=== PATIENT | female | born 1955 | race Caucasian/White ===

== ENCOUNTER 2023-05-09 14:26 | Emergency (ER) | payer MEDICARE, SELFPAY ==
[2023-05-09 15:00] VITALS: BP 156/101; PULSE 81; RESP 16; TEMP 36.6; O2SAT 99
--- NOTE | 2023-05-09 15:21 | ED.FEMALEGU ---
HPI - Female Genitourinary General Chief complaint: Urogenital-Female Stated complaint: urinary issue Time Seen by Provider: 05/09/23 15:21 Source: patient Mode of arrival: ambulatory Limitations: no limitations History of Present Illness HPI Narrative: 67-year-old female presents with complaint of urinary frequency, urgency, dysuria for 1 week. Denies nausea vomiting diarrhea. Afebrile. Reports low back pain for 2 weeks but thinks may be related to recent fall that she was seen in the ER for. Ambulatory with steady gait. States she has not been drinking as much water as usual and thinks that is why she got a urinary tract infection. All systems reviewed and negative except as noted above. Related Data Home Medications Medication Instructions Recorded Confirmed albuterol sulfate 90 mcg/actuation inhalation 05/09/23 aerosol inhaler alprazolam 0.25 mg tablet mg 05/09/23 amlodipine 5 mg tablet mg 05/09/23 atorvastatin 20 mg tablet mg 05/09/23 benzonatate 200 mg capsule mg PO 05/09/23 blood sugar diagnostic (Accu-Chek 05/09/23 05/09/23 Guide test strips) blood-glucose meter (Accu-Chek 05/09/23 05/09/23 Guide Glucose Meter) lancets (Accu-Chek Softclix 05/09/23 05/09/23 Lancets) lisinopril 20 mg tablet mg 05/09/23 metformin 500 mg tablet,extended mg PO 05/09/23 release 24 hr naproxen 250 mg tablet mg 05/09/23 sertraline 50 mg tablet mg 05/09/23 Allergies Allergy/AdvReac Type Severity Reaction Status Date / Time codeine Allergy Rash Verified 05/09/23 15:05 Review of Systems Review of Systems: CONSTITUTIONAL: Denies fever, chills, or sweats. EYES: Denies visual changes, redness, or discharge. ENT: Denies rhinorrhea, congestion, sore throat, or otalgia. CARDIOVASCULAR: Denies chest pain, palpitations, or edema. RESPIRATORY: Denies cough or dyspnea. GASTROINTESTINAL: Denies abdominal pain, nausea, vomiting, or diarrhea. GENITOURINARY: Reports dysuria , frequency, urgency. Denies hematuria. SKIN: Denies rash or itching. MUSCULOSKELETAL: Denies back pain, joint pain, or myalgia. NEUROLOGIC: Denies headache, numbness, or weakness. PSYCHIATRIC: Denies anxiety or depression. All other systems reviewed are negative, except as documented in HPI. PMFSH Comments At time of signature, agree with nursing past medical, surgical, social and family history. There is no relevant family history pertinent to the presenting complaint. Exam Narrative: GENERAL: This is a well-nourished, well-developed patient, in no apparent distress. HEAD: normocephalic, atraumatic. EYES: PERRL. Sclera clear/white. Vision is grossly intact. EARS: External ears normal NOSE: External nose normal NECK: Neck supple, non-tender without lymphadenopathy, masses or thyromegaly. CARDIOVASCULAR: Regular rate and rhythm without murmurs, gallops, or rubs. RESPIRATORY: Clear to auscultation. Breath sounds equal bilaterally. No wheezes, rales, or rhonchi. SKIN: warm, Dry, intact with no suspicious lesions or rash, good texture and turgor. NEURO: awake, alert, and oriented to person, place and time. There were no obvious focal neurologic abnormalities. EXTREMITIES: No joint tenderness, effusion, or edema noted. Course Course Level of Care: Express Care Visit Vital Signs Vital signs: Vital Signs Temperature 36.6 C 05/09/23 15:00 Pulse Rate 81 05/09/23 15:00 Respiratory Rate 16 05/09/23 15:00 Blood Pressure 156/101 H 05/09/23 15:00 Pulse Oximetry 99 05/09/23 15:00 Oxygen Delivery Room Air 05/09/23 15:00 Temperature 36.6 C 05/09/23 15:00 Pulse Rate 81 05/09/23 15:00 Respiratory Rate 16 05/09/23 15:00 Blood Pressure 156/101 H 05/09/23 15:00 Pulse Oximetry 99 05/09/23 15:00 Oxygen Delivery Room Air 05/09/23 15:00 reviewed MDM - Female Genitourinary MDM Narrative Medical decision making narrative: urinalysis 1+ leuks, trace blood. Will treat for urinary t
== END 2023-05-09 15:34 | disposition home or self-care (01) ==
PROVIDERS: Emergency Provider Nurse Practitioner Family
DX: N39.0 Urinary tract infection, site not specified (principal)
CPT/HCPCS: 81003; 87086; 87088; 99213; G0463

== ENCOUNTER 2023-05-12 04:13 | Observation (INO) | payer MEDICARE, SELFPAY ==
[2023-05-12] VITALS (61 sets, daily range): BP systolic 114–185; BP diastolic 67–108; PULSE 68–99; RESP 11–34; TEMP 36.4–37.1; O2SAT 89–100; BMI 34.2
--- NOTE | ~2023-05-12 | CT_ITS ---
. EXAMINATION: CT cervical spine wo con DATE: 05/12/2023 12:38 INDICATION: Fall. TECHNIQUE: Computed tomography (CT) of the cervical spine was performed without intravenous contrast. Automated exposure control and iterative reconstruction technique were employed. Exam dose: 437.28 mGy-cm total exam DLP. COMPARISON: None FINDINGS: There is straightening of the cervical spine which may be due to muscle spasm and/or positi oning. Normal atlantoaxial pole articulation bilaterally. C1 and C2 are normally aligned and the odontoid pr ocess is intact. There is minimal anterolisthesis at C2-3 and C4-5. There is mild degenerative disc disease at C2-3 and C4-5. There is severe degenerative disc disease at C3-4, C5-6 and C6-7 and moderately severe degenerative d isease at C7-T1. There is degenerative change at the apophyseal joints throughout the cervical spine and prominent unc overtebral joint spurring at C3-4, C5-6 and C6-7 and on the left at C4-5. No fracture or dislocation or locked facet or prevertebral soft tissue swelling is detected.. IMPRESSION: Straightening of the cervical spine which may be due to muscle spasm or positioning No fracture or dislocation or locked facet Prominent cervical spondylosis Reviewed, dictated and finalized at [facility]. Reviewed, dictated and finalized at [facility]. NIB GRINDER IMPRESSION: Straightening of the cervical spine which may be due to muscle spa sm or positioning No fracture or dislocation or locked facet Prominent cervical spondylosis
--- NOTE | ~2023-05-12 | XR_ITS ---
Clinical Indication: Chest pain PA and lateral views of the chest: Comparison: None Findings: Possible mild central congestive change. No focal consolidation or pleural effusion. Cardi omediastinal silhouette is within normal limits. Bones and soft tissues are unremarkable. Impression: Possible mild central congestive change. Reviewed, dictated and finalized at [facility]. [employer]MENT PLANT ATTENDANT Impression: Possible mild central congestive change.
--- NOTE | ~2023-05-12 | CT_ITS ---
EXAMINATION: CT diagnostic chest wo con DATE: 05/12/2023 12:39 INDICATION: FALL. Palpitations. TECHNIQUE: Computed tomography (CT) of the chest was performed without intravenous contrast. Addition al 3D reconstructions utilizing coronal maximum intensity projection (MIP) were performed. Automated exposure control and iterative reconstruction technique were employed. The dose-length product was 94 5.72 mGy-cm. COMPARISON: None FINDINGS: Minimal emphysema. 9 x 8 x 5 mm nodule along a small linear band of discoid atelectasis in the right middle lobe. The atelectasis may slightly exaggerated the size of the nodule on the axial imaging. Ca lcified right lower lobe nodule and calcified right hilar lymph nodes consistent with old granulomato us disease. Mild dependent atelectasis in both lungs. No pneumonia, pulmonary edema, pleural effusion or pneumothorax. Heart size is normal. Aortic valve calcific lesion. No pericardial effusion. Thorac ic aorta is normal in caliber. No pathologically enlarged thoracic lymphadenopathy. Cholecystectomy c lips the gallbladder fossa. Bilateral low-attenuation renal cysts the largest on the left measuring 3 .9 cm. There are also bilateral nonobstructing renal stones with at least at least 5 stones at the up per pole the left kidney measuring up to 5-6 mm and 2 mm stone at the upper pole the right kidney. Mo derate thoracic and lumbar spondylosis with bridging osteophytes at multiple levels consistent with d iffuse idiopathic skeletal hyperostosis (DISH). IMPRESSION: 1. Minimal emphysema and mild dependent atelectasis in both lungs. No other acute cardiopulmonary dis ease. 2. Indeterminate 9 x 8 x 5 mm right middle lobe nodule. Recommend 3 month follow-up low-dose noncontr ast chest CT. 3. Bilateral nonobstructing nephrolithiasis. Reviewed, dictated and finalized at [facility]. T FERMENTATION ATTENDANT IMPRESSION: 1. Minimal emphysema and mild dependent atelectasis in both lungs. No other acu te cardiopulmonary disease. 2. Indeterminate 9 x 8 x 5 mm right middle lobe nodule. Recommend 3 month follo w-up low-dose noncontrast chest CT. 3. Bilateral nonobstructing nephrolithiasis.
--- NOTE | ~2023-05-12 | CT_ITS ---
EXAMINATION: CT brain wo con DATE: 05/12/2023 12:37 INDICATION: Fall. TECHNIQUE: Computed tomography (CT) of the head was performed without intravenous contrast. The mA wa s adjusted according to patient size. Iterative reconstruction technique was employed. Exam dose: 90 8.00 mGy-cm total exam DLP. COMPARISON: None FINDINGS: Examination is limited by motion artifact despite repeating some images. Bilateral carotid siphon internal carotid artery calcifications. There is nonspecific diminished attenuation of the cerebral white matter, likely due to chronic small vessel ischemic changes. No intracranial mass lesion or hemorrhage or cerebrovascular accident, midline shift or mass effect i s detected. There is moderate cerebral and cerebellar volume loss. No subdural or epidural hematoma is detected. The mastoid air cells and included paranasal sinuses are normally developed and aerated. No fracture or bone destruction of the cranial vault. IMPRESSION: Cerebral atherosclerosis and chronic small vessel ischemic changes of the cerebral white matter No skull fracture or acute intracranial finding is detected Reviewed, dictated and finalized at [facility]. Reviewed, dictated and finalized at location [facility]. L ENGINEERING MANAGER
--- NOTE | ~2023-05-12 | MR_ITS ---
EXAMINATION: MR cervical spine wo/w con DATE: 05/13/2023 07:21 INDICATION: Neck pain and bilateral shoulder pain and weakness post fall. TECHNIQUE: Magnetic resonance imaging (MRI) of the cervical spine was performed without and with 19 m L Multihance intravenous contrast. Sequences included sagittal T2-weighted FSE, sagittal T2-weighted FS FSE, sagittal T1-weighted FSE, axial T2-weighted FSE, and axial T1-weighted SE. Postcontrast seque nces included sagittal T1-weighted FS FSE, and axial T1-weighted FS SE. COMPARISON: CT dated 05/12/2023 FINDINGS: Straightening of the normal cervical lordosis which could be positional or due to muscle spasm. Vert ebral body heights are normal. Bone marrow signal intensity is normal. Moderate disc height loss at C3-C4, C5-C6 and C6-C7 and mild disc height loss at C2-C3, C7-T1 and T2-T3. Cord signal intensity is normal. There is mild soft tissue edema and enhancement along the posterior tips of the spinous proce sses of C7 and T1 which in the setting of trauma could be seen with either sprain of the interspinous ligament related to potential hyperflexion injury or soft tissue contusion related to direct impacti on without evident associated fracture. The following disc levels are specifically discussed: C2-C3: The disc does not extend beyond the endplate margin. There is no uncovertebral joint osteoarth ritis. There is mild right and moderate left facet joint osteoarthritis. There is moderate left neura l foraminal stenosis. There is no central canal stenosis. C3-C4: Posterior disc osteophyte complex with annular fissure. There is severe bilateral uncovertebra l joint osteoarthritis. There is moderate right and severe left facet joint osteoarthritis. There is mild to moderate right and moderate to severe left neural foraminal stenosis. There is mild central c anal stenosis with flattening of the ventral surface of the cord. C4-C5: Disc is mildly bulging. There is mild right and severe left uncovertebral joint osteoarthritis . There is mild right and moderate left facet joint osteoarthritis. There is moderate to severe left neural foraminal stenosis. There is mild central canal stenosis with mild indentation of the left ade tral surface of the cord. C5-C6: Disc is bulging. There is severe bilateral uncovertebral joint osteoarthritis. There is mild b ilateral facet joint osteoarthritis. There is moderate right and moderate to severe left neural blayne inal stenosis. There is mild central canal stenosis with flattening of the ventral surface of the cor d. C6-C7: Disc is bulging. There is severe bilateral uncovertebral joint osteoarthritis. There is mild l eft and moderate right facet joint osteoarthritis. There is mild bilateral neural foraminal stenosis. There is mild central canal stenosis. C7-T1: Disc is mildly bulging. There is no uncovertebral joint osteoarthritis. There is moderate bila teral facet joint osteoarthritis. There is mild bilateral neural foraminal stenosis. There is no cent ral canal stenosis. IMPRESSION: 1. Moderate cervical spondylosis with no cord signal abnormality or acute osseous abnormality. 2. Mild soft tissue edema and enhancement about the posterior tips of the C7 and T1 spinous processes which given the history of recent injury could be related to either a sprain of the interspinous lig ament such as in a hyperflexion injury or soft tissue contusion related to a direct impaction injury. Reviewed, dictated and finalized at [facility]. SUPERVISOR IMPRESSION: 1. Moderate cervical spondylosis with no cord signal abnormality or acute osseo us abnormality. 2. Mild soft tissue edema and enhancement about the posterior tips of the C7 an d T1 spinous processes which given the history of recent injury could be relate d to either a sprain of the inte
--- NOTE | 2023-05-12 04:22 | ECG_ITS ---
Measurements Intervals [place] Rate: 82 P: PA: 0 QRS: 12 QRSD: 83 T: 37 QT: 353 QTc: 414 Interpretive Statements SINUS OR ECTOPIC ATRIAL RHYTHM BASELINE ARTIFACT- I, II, III, AVR, AVL, AVF, V1, V4-V6 BORDERLINE ECG NO PREVIOUS ECG AVAILABLE FOR COMPARISON Electronically Signed On 05-12-2023 7:33:49 MANGLE ROLLER by Apollo Hooks D.O.
[2023-05-12 04:34] LABS: Basophils Percent Auto 0.2 % (0.2-1.2); Eosinophils Absolute Auto 0.2 K/mm3 (0-0.3); Eosinophils Percent Auto 2.7 % (0-4.4); Hematocrit 40.3 % (37.0-47.0); Hemoglobin 12.8 g/dL (12.0-15.0); Immature Granulocyte Absolute 0.02 K/mm3 (0.00-0.031); Immature Granulocyte Percent A 0.2 % (0-0.5); Lymphocytes Absolute Auto 2.31 K/mm3 (0.9-3.2); Lymphocytes Percent Auto 26.1 % (18.3-44.2); Mean Corpuscular HGB Conc 31.8 g/dl (32-36); Mean Corpuscular Hemoglobin 28.2 pg (26-34); Mean Corpuscular Volume 88.8 fl (80-100); Mean Platelet Volume 10.5 fl (7.4-10.4); Monocytes Absolute Auto 0.8 K/mm3 (0.1-0.6); Monocytes Percent Auto 9.2 % (2.6-8.5); Neutrophils Absolute Auto 5.5 K/mm3 (1.3-6.7); Neutrophils Percent Auto 61.6 % (45.5-73.1); Platelet Count Result 221 k/mm3 (150-375); Red Blood Count 4.54 M/mm3 (4.2-5.4); White Blood Count 8.9 K/mm3 (4.5-10.0)
[2023-05-12 04:45] LABS: INR 0.9; Prothrombin Time 12.2 Seconds (11.1-14.7)
[2023-05-12 04:46] LABS: Alanine Aminotransferase 22 U/L (6-35); Albumin Level 3.9 g/dL (3.5-5.1); Alkaline Phosphatase 126 U/L (38-126); Anion Gap 11 mmol/L (8-16); Aspartate Amino Transferase 20 U/L (14-36); Bilirubin,Total 0.7 mg/dL (0.2-1.3); Blood Urea Nitrogen 17 mg/dL (7-17); Calcium 10.8 mg/dL (8.4-10.2); Carbon Dioxide 21 mmol/L (22-30); Chloride 106 mmol/L (98-107); Estimated CRCL calculation 91 ml/min; Estimated Glomerular Filt Rate > 60; Glucose 145 mg/dL (65-110); Lipase 85 U/L (23-300); Sodium 138 mmol/L (137-145)
[2023-05-12 04:47] LABS: Partial Thromboplastin Time 26.1 SECONDS (22.3-36.8)
[2023-05-12 04:57] LABS: Troponin I < 0.012 ng/mL (0.000-0.034)
[2023-05-12] MEDS: SODIUM CHLORIDE 0.9% IV 1,000 ML 999 ML IV CONT (05:07)
--- NOTE | 2023-05-12 05:09 | PC.NURSE ---
Patient requested if she could have something for anxeity. Notified EDP Dr. Humphrey who VORB 0.5mg Ativan IVP.
[2023-05-12] MEDS: LORazepam INJ (*CRX) 2 MG/ML VIAL 0.5 MG IV PUSH (05:12)
--- NOTE | 2023-05-12 05:12 | ED.GENADULT ---
HPI - General Adult General Chief complaint: Arrhythmia/Palpitations <Marvin Humphrey MD - Last Filed: 05/12/23 07:16> Stated complaint: palpitations/headache <Marvin Humphrey MD - Last Filed: 05/12/23 07:16> Time Seen by Provider: 05/12/23 04:27 <Marvin Humphrey MD - Last Filed: 05/12/23 07:16> History of Present Illness HPI narrative: This is a 67-year-old female presenting with palpitations. Patient says that she feels like she has been having trouble breathing for weeks. She was out show with her aunt she then developed palpitations and an achy pain in the center of her chest. Nonradiating 6/10 intensity and constant. She states she has never had pain like this before there are no exacerbating symptoms. Patient says she is anxious and asking for something for anxiety. Patient denies fever, chills, cough abdominal pain, lower extremity edema, hx of blood clots. states she fell two weeks ago and broke a rib and strained both her shoulders. <Marvin Humphrey MD - Last Filed: 05/12/23 07:16> Related Data Home medications: Home Medications Medication Instructions Recorded Confirmed albuterol sulfate 90 mcg/actuation inhalation 05/09/23 aerosol inhaler alprazolam 0.25 mg tablet mg 05/09/23 amlodipine 5 mg tablet mg 05/09/23 atorvastatin 20 mg tablet mg 05/09/23 benzonatate 200 mg capsule mg PO 05/09/23 blood sugar diagnostic (Accu-Chek 05/09/23 05/09/23 Guide test strips) blood-glucose meter (Accu-Chek 05/09/23 05/09/23 Guide Glucose Meter) lancets (Accu-Chek Softclix 05/09/23 05/09/23 Lancets) lisinopril 20 mg tablet mg 05/09/23 metformin 500 mg tablet,extended mg PO 05/09/23 release 24 hr naproxen 250 mg tablet mg 05/09/23 sertraline 50 mg tablet mg 05/09/23 amlodipine 5 mg tablet 5 mg PO DAILY 05/12/23 05/12/23 atorvastatin 20 mg tablet mg 05/12/23 glimepiride 2 mg tablet 2 mg PO DAILY 05/12/23 05/12/23 omeprazole 20 mg capsule,delayed 20 mg PO DAILY 05/12/23 05/12/23 release sertraline 50 mg tablet 50 mg PO DAILY 05/12/23 05/12/23 <Marvin Humphrey MD - Last Filed: 05/12/23 07:16> Allergies/adverse reactions: Allergies Allergy/AdvReac Type Severity Reaction Status Date / Time codeine Allergy Rash Verified 05/12/23 04:18 <Marvin Humphrey MD - Last Filed: 05/12/23 07:16> [facility] Past Medical History Medical History: Medical History Diabetes Hypertension <Marvin Humphrey MD - Last Filed: 05/12/23 07:16> Exam Narrative: APPEARANCE: No apparent distress. Head: atraumatic. EYES: EOMI, NOSE: Atraumatic NECK: Trachea midline RESPIRATORY: No increased rate of breathing, clear to auscultation CARDIOVASCULAR: RRR, no peripheral ABDOMINAL: Non-distended soft nontender no guarding rebound MUSCULOSKELETAl: No obvious deformities NEURO: Alert. Moving 4/4 extremities SKIN:: Warm, dry. Normal color PSYCHIATRIC: Appears anxious <Marvin Humphrey MD - Last Filed: 05/12/23 07:16> Course Reevaluation(s) Reevaluation #1: PATIENT WAS SIGNED OUT TO ME, WAITING FOR 2ND TROPONIN WHICH CAME BACK WITHIN NORMAL LIMITS. AT THE TIME OF DISCHARGE PATIENT IS TELLING ME THAT SHE HAD A FALL ON APRIL 25 FACE , HER ARMS PUSHED BACKWARD BILATERALLY AND START HAVING PAIN AT HER NECK, CHEST BILATERALLY SHOULDER BILATERALLY AND ALL OVER HER BACK, CAN NOT LIFT HER ARMS MAINLY ON THE LEFT SIDE BECAUSE OF PAIN. PATIENT WENT TO EMERGENCY ROOM AT THAT TIME AND IS TELLING ME THAT IT IMAGING CAME BACK NEGATIVE. BUT PATIENT IS NOT IMPROVING, TROUBLE BREATHING, POSSIBLE FACIAL CONGESTION, DIFFUSE PAIN OF THE CHEST AND BACK BILATERALLY. SHE DENIES NUMBNESS OR TINGLING. MY PLAN TO GET CT SCAN OF THE HEAD, CERVICAL SPINE AND CHEST WITHOUT CONTRAST. CERVICAL SPINAL CORD INJURY IS A POSSIBILITY. <Areli Ruggiero MD - Last Filed: 05/12/23 15:14> Date: 05/12/23 <Areli Ruggiero MD - Last Filed:
[2023-05-12] MEDS: IPRATROPIUM BR 0.02% INH SOLN 0.5 MG/2.5 ML VIAL INHALATION (05:15)
[2023-05-12] MEDS: ALBUTEROL SULFATE NEB 2.5 MG/3 ML INH 5 MG INHALATION (05:15)
--- NOTE | 2023-05-12 05:20 | PC.NURSE ---
Patient c/o pain to head/congestion, left shoulder, chest, and states I have a broken right rib . Patient states can the doctor do anything about my pain? . Notified EDP Dr. Humphrey who VORB 1,000mg Tylenol PO.
[2023-05-12] MEDS: ACETAMINOPHEN 500 MG TABLET 1000 MG PO (05:24)
--- NOTE | 2023-05-12 07:05 | ECG_ITS ---
Measurements Intervals [place] Rate: 94 P: 42 MI: 165 QRS: 10 QRSD: 83 T: 44 QT: 361 QTc: 453 Interpretive Statements SINUS RHYTHM NORMAL ECG COMPARED TO ECG 05/12/2023 04:27:54 SINUS RHYTHM NOW PRESENT Electronically Signed On 05-12-2023 8:06:40 DIRECTOR OF PATIENT SAFETY by Apollo Hooks D.O.
[2023-05-12 07:50] LABS: Troponin I < 0.012 ng/mL (0.000-0.034)
[2023-05-12 08:09] LABS: Influenza A QL RT-PCR Negative (Negative); Influenza B QL RT-PCR Negative (Negative); RSV RNA, RT-PCR Negative (Negative); SARS-CoV-2 RNA PCR Negative (Negative)
[2023-05-12] MEDS: ALBUTEROL SULFATE NEB 2.5 MG/3 ML INH INHALATION ×2 (09:37→15:43)
[2023-05-12] MEDS: MORPHINE SULFATE (*CRX) 4 MG/ML INJ IV PUSH ×4 (10:56→22:32)
[2023-05-12] MEDS: diazePAM INJ (*CRX) 10 MG/2 ML SYRINGE 5 MG IV PUSH (15:13)
--- NOTE | 2023-05-12 17:07 | ADMGEN ---
This patient, Tamika Lyon, was admitted to Medical Room 247-. Patient/family oriented to hospital policies and general routines including ID bracelet, bed and alarms, visiting hours, pain management, procedures, bathroom and other care routines, personal items, smoking policy, room service/diet, and visiting hours. Information on how to activate the Rapid Response Team has been discussed. Patient/Family are encouraged to report perceived risks to care and to ask questions if they do not understand what they are told or what they should do.
--- NOTE | 2023-05-12 19:18 | PM.IMHP ---
H&P: HPI History of Present Illness Date/Time: 05/12/23 18:15 Chief Complaint: Multiple complaints. Narrative: This is a 67-year-old female with hypertension, hyperlipidemia, type 2 diabetes mellitus, gastroesophageal reflux disease, and anxiety who presented to the emergency department for evaluation of multiple complaints. The patient provides the following history. She presented to triage with complaints of palpitations for most of the day yesterday as well as elevated blood pressure, anxiety, and shortness of breath. She had nonradiating, aching discomfort in the center of her chest as well. She goes on to say that she has had decreased exercise tolerance due to shortness of breath for quite some time and she is noticing swelling in her hands and feet. Her workup in the emergency department was pretty unrevealing and she had 2 negative troponin and an EKG without concerning findings. ED physician spoke with her regarding these findings and plan for discharge with follow-up with her doctors. At that time she reported that she had a fall several weeks ago and was told that she had broken a rib been strained her shoulders. The pain in her shoulders and neck have not improved and she is having troubles lifting up her left arm. Her neck hurts as well as worse with movement and palpation. CT scan of the head, cervical spine, and chest were obtained without acute findings. Case was discussed with the on-call neurosurgeon who recommended neck MRI to rule out injury, impingement, etc.. She denies syncope, near syncope, focal weakness, paresthesias Review of Systems Review of Systems: Twelve systems were reviewed. She feels like her balance is a bit off. No vertigo or visual changes. She complains of a generalized, frontal headache which has been going on since her fall. There was no loss of consciousness in the fall. She has chronic sinus issues. Denies facial droop and difficulty speaking and swallowing. No orthopnea or paroxysmal nocturnal dyspnea. No calf pain or tenderness. Except as documented, all other systems were reviewed and are negative. [facility] Past Medical History Medical History (Updated 05/12/23 @ 22:48 by Jia Mattson PA-C) Anxiety Hypertension Hypothyroidism Type 2 diabetes mellitus Family History Family History (Updated 05/12/23 @ 22:47 by Jia Mattson PA-C) Other Family history non-contributory Social History Social History Smoking status: Never smoker Alcohol intake: never Substance use: never Do You Feel Safe in your Home?: Yes Lack of Transportation: No Lack of Food: Never True Current Housing: I Have Housing Concerned About Future Housing: No Difficulty Paying Gas/Electric Bills: No Difficulty Paying for Meds: No Currently Unemployed: No Education: Don't Know Difficulty w/ Childcare or Family Care: No Spiritual care concerns: No Meds Home Medications and Allergies Home Medications Medication Instructions Recorded Confirmed Type albuterol sulfate 90 mcg/actuation 2 puff inhalation DAILY PRN 05/09/23 05/12/23 History aerosol inhaler Shortness Of Breath Or Wheezing alprazolam 0.25 mg tablet 0.25 mg PO TID PRN Anxiety 05/09/23 05/12/23 History blood sugar diagnostic (Accu-Chek 05/09/23 05/12/23 History Guide test strips) blood-glucose meter (Accu-Chek 05/09/23 05/12/23 History Guide Glucose Meter) ciprofloxacin HCl 500 mg tablet 500 mg PO BID 7 days #14 tabs 05/09/23 05/12/23 Rx lancets (Accu-Chek Softclix 05/09/23 05/12/23 History Lancets) lisinopril 20 mg tablet 20 mg PO QAM 05/09/23 05/12/23 History metformin 500 mg tablet,extended 1,000 mg PO QAM 05/09/23 05/12/23 History release 24 hr phenazopyridine 200 mg tablet 200 mg PO TID PRN pain 3 days #10 05/09/23 05/12/23 Rx (Pyridium) tabs amlodipine 5 mg tablet 5 mg PO QPM 05/12/23 05/12/23 History atorvastatin 20 mg tablet 20 mg PO
[2023-05-12 20:34] LABS: Glucose Point of Care 192 mg/dl (65-105)
[2023-05-12] MEDS: ALBUTEROL SULFATE (*SP) AEROSOL 1 PUFF 2 PUFF INHALATION (22:45)
[2023-05-12] MEDS: amLODIPine BESYLATE 5 MG TABLET PO (23:04)
[2023-05-12] MEDS: ALPRAZolam (*CRX) 0.25 MG TABLET PO (23:04)
[2023-05-12] MEDS: ATORVASTATIN 20 MG TABLET PO (23:04)
[2023-05-13] VITALS (9 sets, daily range): BP systolic 124–144; BP diastolic 68–81; PULSE 64–85; RESP 16–18; TEMP 36–36.8; O2SAT 93–96
--- NOTE | 2023-05-13 01:38 | ECHO_ITS ---
Patient Info Name: Tamika Lyon Age: 67 years : 1955 Gender: Female Ht: 67 in Wt: 210 lbs BSA: 2.16 m2 HR: 102 bpm BP: 115 / 66 mmHg Heart Rhythm: Sinus Rhythm Technical Quality: Good Exam Date: 05/13/2023 9:37 AM Exam Location: Echo Lab Patient Status: Inpatient Admit Date: 05/12/2023 Staff Ordering Physician: Jia Mattson PA-C Gun Mechanic: Benito Lennon RDCS Attending Provider: Sumeet Bourne MD Referring Physician: Twila GOVEA; Exam Type: CA echo dop color flow w con Study Info Indications - chest pain/palpatation Complete two-dimensional, color flow and Doppler transthoracic echocardiogram is performed with contrast to opacify the left ventricle and to improve the deliniation of the left ventricle endocardial borders. Contrast/Agitated Saline Contrast/Ag. Saline: Definity Amount: 3.00 ml Summary 1. Left ventricular chamber dimension is normal. 2. Left ventricular systolic function is normal, estimated at 65-70%. 3. There is moderately increased left ventricular wall thickness. 4. The left ventricular diastolic function is abnormal. 5. Left atrial chamber dimension is mildly enlarged. 6. There is mild aortic valve regurgitation. 7. There is mild mitral valve regurgitation. 8. There is mild tricuspid valve regurgitation. 9. There is mild pulmonic regurgitation. Left Ventricle Left ventricular chamber dimension is normal. Left ventricular systolic function is normal, estimated at 65-70%. There is moderately increased left ventricular wall thickness. The left ventricular diastolic function is abnormal. Right Ventricle Right ventricular chamber dimension is normal. Right ventricular systolic function is normal. Left Atria Left atrial chamber dimension is mildly enlarged. Right Atria Right atrial chamber dimension is normal. Atrial Septum Intact interatrial septum visualized by color flow imaging. Aortic Valve The aortic valve is trileaflet. There is mild aortic valve sclerosis. There is no aortic valve stenosis. There is mild aortic valve regurgitation. Pulmonic Valve The pulmonic valve is normal. There is no pulmonic valve stenosis. There is mild pulmonic regurgitation. Mitral Valve The mitral valve has normal leaflets. There is no mitral valve stenosis. There is mild mitral valve regurgitation. Tricuspid Valve The tricuspid valve leaflets are normal. There is no significant tricuspid valve stenosis. There is mild tricuspid valve regurgitation. No pulmonary hypertension, estimated pulmonary arterial systolic pressure is 23 mmHg. Pericardium/Pleural The pericardium appears normal. There is trivial pericardial effusion. Aorta The aortic root size at the sinus of Valsalva is normal. Left Ventricular Outflow Tract Name Value Normal LVOT 2D LVOT Diameter 2.31 cm LVOT Doppler LVOT Peak Gradient 6 mmHg LVOT Mean Gradient 3 mmHg LVOT VTI 23.69 cm LVOT VTI/AV VTI Ratio 0.90 LVOT Stroke Volume 99.64 ml LVOT CO 7.14 l/min
[2023-05-13] MEDS: MORPHINE SULFATE (*CRX) 2 MG/ML INJ IV PUSH ×2 (02:06→11:45)
[2023-05-13 06:10] LABS: Hematocrit 38.4 % (37.0-47.0); Hemoglobin 12.4 g/dL (12.0-15.0); Mean Corpuscular HGB Conc 32.3 g/dl (32-36); Mean Corpuscular Hemoglobin 28.4 pg (26-34); Mean Corpuscular Volume 88.1 fl (80-100); Mean Platelet Volume 10.7 fl (7.4-10.4); Platelet Count Result 220 k/mm3 (150-375); Red Blood Count 4.36 M/mm3 (4.2-5.4); Red Cell Distribution Width 13.1 % (11.5-14.5)
[2023-05-13 06:16] LABS: Anion Gap 8 mmol/L (8-16); Blood Urea Nitrogen 13 mg/dL (7-17); Calcium 10.5 mg/dL (8.4-10.2); Carbon Dioxide 25 mmol/L (22-30); Chloride 107 mmol/L (98-107); Estimated CRCL calculation 91 ml/min; Estimated Glomerular Filt Rate > 60; Glucose 135 mg/dL (65-110); Magnesium 1.9 mg/dL (1.6-2.3); Sodium 140 mmol/L (137-145)
[2023-05-13] MEDS: LEVOTHYROXINE SODIUM 125 MCG TABLET PO (06:27)
[2023-05-13] MEDS: ACETAMINOPHEN 325 MG TABLET 650 MG PO ×2 (06:27→11:44)
[2023-05-13] MEDS: LORATADINE 10 MG TABLET PO (06:27)
[2023-05-13 06:45] LABS: Hemoglobin A1C 6.7 % (<5.7)
[2023-05-13] MEDS: ONDANSETRON INJ 4 MG/2 ML VIAL IV PUSH (07:36)
[2023-05-13 07:50] LABS: Thyroid Stimulating Hormone Reflex 0.142 uIU/mL (0.465-4.68)
[2023-05-13] MEDS: ALBUTEROL SULFATE NEB 2.5 MG/3 ML INH INHALATION (07:54)
[2023-05-13] MEDS: IPRATROPIUM BR 0.02% INH SOLN 0.5 MG/2.5 ML VIAL INHALATION (07:54)
[2023-05-13] MEDS: FLUTICASONE/SALMETEROL 45-21 MCG INHALER 1 PUFF 2 PUFF INHALATION (07:54)
[2023-05-13 08:37] LABS: Glucose Point of Care 138 mg/dl (65-105)
[2023-05-13 09:15] LABS: Free T4 Free Thyroxine Reflex 1.75 ng/dL (0.78-2.19)
[2023-05-13] MEDS: metFORMIN HCL XR 500 MG TAB.SR.24H 1000 MG PO (09:34)
[2023-05-13] MEDS: lisinopriL 20 MG TABLET PO (09:34)
[2023-05-13] MEDS: PANTOPRAZOLE 40 MG TABLET PO (09:34)
[2023-05-13] MEDS: GLIMEPIRIDE 2 MG TABLET PO (09:34)
[2023-05-13] MEDS: CYCLOBENZAPRINE HCL 5 MG TABLET PO (09:34)
[2023-05-13] MEDS: SERTRALINE HCL 50 MG TABLET PO (09:34)
[2023-05-13] MEDS: ALPRAZolam (*CRX) 0.25 MG TABLET PO (09:37)
--- NOTE | 2023-05-13 09:39 | WPDNEUROSGCN ---
Assessment and Plan Assessment and plan (1) Neck pain: Code(s): M54.2 - Cervicalgia Status: Acute (2) Cervical spondylosis without myelopathy: Code(s): M47.812 - Spondylosis without myelopathy or radiculopathy, cervical region Status: Acute Assessment and Plan: The patient is a 67-year-old female who presents with multiple complaints but mainly bilateral shoulder pain, neck pain, and headaches who fell on 04/25 and could have possibly had a flexion-extension/whiplash injury. She denies any radicular arm symptoms, nor any paresthesias, no focal weakness, no gait disturbances. CT imaging was negative for acute intracranial process and no cervical fractures. MRI of the cervical spine shows degenerative related multilevel spondylosis but no significant central stenosis/cord compression, no T2 signal changes within the cord. There is question of mild edema in the posterior aspect/soft tissue of the C7 and T1 spinous process but not in intraspinous ligament region that is worrisome for instability/unstable ligamentous injury. The patient's neck pain symptoms are more consistent with musculoskeletal pain/spasms and possibly mild strain seen at C7,T1 in the soft tissues. There is no surgical indication for her current symptoms or imaging findings. I discussed with her that she may benefit from a mild muscle relaxant and also possibly a short course of steroids such as a medrol dose pack, however she is diabetic and I will defer this to the Hospitalist team. Patient would also benefit from outpatient physical therapy for her neck pain in the form of stretching, heat, ultrasound, massage, and traction. [place] I told her it might be better if she discusses this with her primary care when she returns back to [place] for a prescription. All of her questions were answered. We will sign off, please call with any questions. Quita Harvey PA-C Neurosurgery office # [phone] Consult date: 05/13/23 Reason for consult: Neck and bilateral shoulder pain HPI: Tamika Lyon is a Right handed 67 year old female who presented to the ER yesterday due to bilateral shoulder and neck pain, headache, upper chest congestion, and palpitations. She is in town visiting family for the holiday, she lives in [place], [place]. She states on 04/25/23 she tripped over a door threshold and fell with both arms stretched out and caught herself on a coffee table. She is unsure if she hit her head or not. She reports having immediate bilateral shoulder pains and was evaluated at a local hospital after calling EMS. She was told she had a rib fracture but no shoulder or neck fractures. She's had surgery on her right humerus in the past and has plate and screws . Since this fall she has been unable to hold any heavy objects in both hands due to this causing shoulder pain, she also cannot sling her purse over her shoulder due to severe pain. She admits to some neck discomfort along with posterior right-sided headache. She denies any radiating arm pains, no numbness or tingling in her arms or hands, no focal weakness, and no loss of bladder or bowel control. Patient also denies any radicular leg symptoms, she does report bilateral knee pain from her fall. She states both shoulders hurt her equally especially with any range of motion, she denies having any discomfort if she sits still and doesn't move her arms. Patient does not have any prior spinal surgery history. CT scan of the head, cervical spine, and chest were obtained without acute findings. A cervical MRI was obtained overnight. Review of Systems Review of Systems: All systems reviewed & are unremarkable except as noted in HPI and below [facility] Past Medical History Medical History (Updated 05/13/23 @ 10:25 by Quita Harvey PA-C) Anxiety Hypertension Hypothyroidism Type 2 diabetes mellitus Family History Family History (Updated
[2023-05-13] MEDS: PERFLUTREN LIPID MICROSPHERES 1.5 ML VIAL DILUTED TO 10 ML TOTAL VOLUME IV PUSH (10:10)
--- NOTE | 2023-05-13 10:55 | IVDEFINITY ---
Prior to administration of IV Definity the patient was educated on the risks and benefits of the imaging enhancing agent including potential adverse side effects. The patient verbalized understanding. Allergies were verified. No exclusion criteria were identified and at least one of the following inclusion criteria were met: 1) physician request, 2) patient technically difficult to image (per the [place] [employer] guidelines of two or more segments not discernable within the apical view), or 3) questionable left ventricular function. ?
[2023-05-13] MEDS: LIDOCAINE 5% PATCH 3 PATCH TRANSDERM (11:53)
[2023-05-13 12:05] LABS: Glucose Point of Care 145 mg/dl (65-105)
[2023-05-13] MEDS: CIPROFLOXACIN 500 MG TAB PO (12:58)
[2023-05-13 13:48] LABS: Total Triiodothyronine (T3) 1.55 NG/ML (0.97-1.69)
--- NOTE | 2023-05-13 15:19 | PM.DS ---
DS: Admitting Diagnosis Discharge Date 05/13/23 Admitting Diagnosis neck pain DS: Discharge Diagnosis Discharge Diagnosis (1) Neck pain: Code(s): M54.2 - Cervicalgia Status: Acute (2) Palpitations: Code(s): R00.2 - Palpitations Status: Acute (3) Anxiety: Code(s): F41.9 - Anxiety disorder, unspecified Status: Acute (4) Hypothyroidism: Code(s): E03.9 - Hypothyroidism, unspecified Status: Acute (5) Type 2 diabetes mellitus: Code(s): E11.9 - Type 2 diabetes mellitus without complications Status: Acute (6) Hypertension: Code(s): I10 - Essential (primary) hypertension Status: Acute DS: Summary Hospital Course Hospital Course: This is a 67-year-old female with a past medical history of hypertension, hyperlipidemia, diabetes, GERD and anxiety that presented to the ED on 05/12/2023 for evaluation of multiple complaints. Patient had complaints of chest palpitations, elevated blood pressure, anxiety and shortness of breath. She had a non radiating aching chest discomfort and decreased exercise tolerance due to shortness of breath. She had also noticed some swelling in her feet and hands. Workup in the ED was unrevealing with a normal EKG, troponin negative x3. She was being treated for a UTI as an outpatient. Will continue this medication at this time. She was advised that she follow-up with her doctors but at that time she stated that she have fall several weeks prior that resulted in a broken rib and strain in her shoulders. She had decreased movement in her neck and shoulders. CT of head neck without acute findings. The case was discussed with the on-call neurosurgeon the recommended MRI to rule out injury/ impingement excised around. MRI of cervical spine obtained revealing spondylosis. Neurosurgery stated that patient would benefit from outpatient physical therapy for her neck pain in the form of stretching, heat, ultrasound, massage and traction. Due to patient living at a town is advised that she do this therapy back home. No further neurosurgical workup required at this time. Will place patient on Flexeril for her neck discomfort. Echocardiogram was ordered due to fullness completion of chest workup which came back without significant abnormality. Again would recommend follow-up with her PCP at home. Patient's labs and vital signs are stable and she is medically cleared for discharge at this time. Time Spent with Patient Time attestation: Total time spent providing and/or coordinating discharge services: Exam Narrative: GENERAL: Comfortable, no acute distress HENMT: moist mucous membranes EYES: EOM intact b/l NECK: no lymphadenopathy RESPIRATORY: clear to auscultation CARDIO: RRR GI: soft, nontender, bowel sounds present SKIN: no rashes EXTREMITIES: no edema, redness or tenderness DS: Data Data Completed and Pending Labs on day of discharge: Labs from last 24 hours 05/13/23 05/13/23 05/13/23 11:54 08:32 05:40 WBC 7.0 RBC 4.36 Hgb 12.4 Hct 38.4 MCV 88.1 MCH 28.4 MCHC 32.3 RDW 13.1 Plt Count 220 MPV 10.7 H Sodium 140 Potassium 4.0 Chloride 107 Carbon Dioxide 25 Anion Gap 8 BUN 13 Creatinine 0.60 L Estim Creat Clear Calc 91 Estimated GFR > 60 Glucose 135 H POC Capillary Glucose 145 H 138 H Hemoglobin A1c 6.7 H Calcium 10.5 H Magnesium 1.9 TSH (Reflex) 0.142 L Free T4 1.75 Total T3 1.55 05/12/23 20:29 WBC RBC Hgb Hct MCV MCH MCHC RDW Plt Count MPV Sodium Potassium Chloride Carbon Dioxide Anion Gap BUN Creatinine Estim Creat Clear Calc Estimated GFR Glucose POC Capillary Glucose 192 H Hemoglobin A1c Calcium Magnesium TSH (Reflex) Free T4 Total T3 Discharge Plan Discharge Attending physician on discharge: Lauryn Timmons Consulting providers: Ann Marie De Jesus
== END 2023-05-13 16:45 | disposition home or self-care (01) ==
LOC: ANHED 15:14 → ANH2MED 16:48 → ANH3MEDSUR 05-14 08:57
PROVIDERS: Emergency Medicine; Physician Assistant; Admitting Provider Internal Medicine; Emergency Provider Emergency Medicine; Visit Provider Hospitalist
DX: R00.2 Palpitations (principal); F41.9 Anxiety disorder, unspecified; E03.9 Hypothyroidism, unspecified; E11.9 Type 2 diabetes mellitus without complications; I10 Essential (primary) hypertension; M54.2 Cervicalgia; M47.812 Spondylosis without myelopathy or radiculopathy, cervical region; I67.2 Cerebral atherosclerosis; R91.1 Solitary pulmonary nodule; N20.0 Calculus of kidney; Z20.822 Contact with and (suspected) exposure to COVID-19; E78.5 Hyperlipidemia, unspecified; I08.3 Combined rheumatic disorders of mitral, aortic and tricuspid valves; K21.9 Gastro-esophageal reflux disease without esophagitis; Z79.51 Long term (current) use of inhaled steroids; Z79.84 Long term (current) use of oral hypoglycemic drugs; Z79.1 Long term (current) use of non-steroidal anti-inflammatories (NSAID); Z79.891 Long term (current) use of opiate analgesic; Z79.899 Other long term (current) drug therapy
CPT/HCPCS: 36415; 70450; 71046; 71250; 72125; 72156; 80048; 80053; 82948; 83036; 83690; 83735; 84439; 84443; 84480; 84484; 85025; 85027; 85610; 85730; 87637; 93005; 94640; 96361; 96374; 96375; 96376; 99285; A9270; A9577; C8929; G0378; J2060; J2270; J2405; J3360; J7030; Q9957